=== PATIENT | male | born 1960 | race Caucasian/White ===

== ENCOUNTER 2021-01-09 07:08 | Outpatient (CLI) | payer OTHER, SELFPAY ==
--- NOTE | 2021-01-09 07:29 | NMCV_ITS ---
NM rodrigo perf SPECT r/s* [id number] Bobby Ruiz Age: 60 Gender: M : 1960 Exam Date: 01/09/2021 07:29 Ordering Phys: Veronique Cevallos Technologist: ROB Lin Exam Location: [facility] Indications: CHEST PAIN STRESS TEST [facility] IMAGE PROTOCOL Rest/Stress 1 Exercise Day Radiopharmaceutical Dose (mCi) Administration Site Administered by Rest: Tc-99m 10.7 IV ROB Lin Sestamibi Stress:Tc-99m 32.9 IV ROB Poole Sestamibi Rest: 09-Jan-2021 60 Discovery 630 Stress: 09-Jan-2021 15 Discovery 630 Radiopharmaceutical was injected at 86 % maximum heart rate. Images obtained in supine and prone position. SPECT RESULTS Technical Quality: Excellent Raw Data Analysis: Normal Image Corrections: No attenuation or motion correction applied Summed Stress Score: 2 Summed Rest Score: 1 Summed Difference Score: 2 PERFUSION FINDINGS Large area of basal to distal inferior fixed perfusion defect noted in basal to distal inferior wall suggestive of old myocardial infarction versus scarring. Small area of decreased tracer uptake noted in basal anterior wall on the rest images which showed mild area of reversibility on the stress images however in the absence of wall motion abnormality most likely it is an artifact. FUNCTIONAL RESULTS (calculated via Gated SPECT) Stress Image LV EF (%): 71 Stress EDV (mL):82 TID: 1.1 Stress ESV (mL):24 Rest Image LV EF (%): 71 FUNCTIONAL FINDINGS: There is normal left ventricular systolic function. IMPRESSIONS This study is negative for ischemia. EKG segment will be documented separately.TID ratio was elevated which could be secondary left ventricle hypertrophy/subendocardial ischemia. Crystal Sparks MD (Electronically Signed) Final Date: 09 January 2021 23:37 S
--- NOTE | 2021-01-09 07:29 | ECG_ITS ---
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 Baseline heart rate was 68 beats per minute. Baseline blood pressure was 130/82 millimeters of mercury. Target heart rate was 158 Beats per minute. Maximum heart rate achieved was 149, which was 94 % of the target heart rate. Maximum blood pressure was 201/82 millimeters of mercury. Total exercise time was 4 minutes 30 seconds maximum METs achieved was 7.0, maximum VO2 was 24.5. The reason for ending the test was maximum effort achieved. The patient complained of during the stress test, which then resolved at the end of the test. ELECTROCARDIOGRAM: BASELINE: Showed sinus rhythm, normal axis, no significant ST-T changes at the baseline noted. EXERCISE: At the peak exercise level, no significant ST-T changes suggestive of ischemia noted. RECOVERY: During the recovery period, heart rate dropped appropriately. No significant ST-T changes in the recovery suggestive of ischemia noted. CONCLUSION: 1. Exercise capacity poor. 2. Heart rate response was tachycardic. 3. Blood pressure response was hypertensive. 4. Symptoms not suggestive of ischemia. 5. Electrocardiogram portion of the stress test was not suggestive of ischemia. 6. Nuclear scan will be documented separately. Electronically Signed On 02-06-2021 20:15:47 CDT by AISSATOU BOSTON [id number]
[2021-01-09 07:31] VITALS: BMI 34.9
[2021-01-09 09:07] VITALS: BP 155/83; PULSE 89
== END 2021-01-09 07:09 | disposition home or self-care (01) ==
LOC: RAD 07:16
PROVIDERS: Visit Provider Physician Assistant
DX: R07.9 Chest pain, unspecified (principal)
CPT/HCPCS: 78452; 93017; A9500

== ENCOUNTER → 2021-10-04 11:00 | Outpatient (BNVA) | payer OTHER, SELFPAY | PROVIDERS: Visit Provider Nurse Practitioner Family | DX: Z20.822 Contact with and (suspected) exposure to COVID-19 (principal) | CPT/HCPCS: 87635 ==